=== PATIENT | female | born 1995 | race Caucasian/White ===

== ENCOUNTER 2016-09-22 18:22 | Emergency (ER) | payer OTHER ==
[2016-09-22 18:39] VITALS: BP 132/84
--- NOTE | 2016-09-22 19:08 | EDM.PDOC ---
ED HPI GENERAL MEDICAL PROBLEM - General Chief Complaint: ENT Problem Stated Complaint: RETAINER BROKEN Time Seen by Provider: 09/22/16 19:10 Source of Information: Reports: Patient - History of Present Illness INITIAL COMMENTS - FREE TEXT/NARRATIVE: pt has a loose lower retainer and she cut the wirre that spit into 3 pieces and is hurting her tongue. She has been using gum to cover it. She is wanting me to remove the remainder of it. Onset: Other (yesterday) Duration: Hour(s): Associated Symptoms: Reports: No Other Symptoms Oral/Mouth Pain Score (Numeric/FACES): 6 - Related Data Allergies Allergy/AdvReac Type Severity Reaction Status Date / Time codeine Allergy Hives Verified 09/22/16 18:41 fentanyl Allergy Hives Verified 09/22/16 18:41 hydrocodone Allergy Anaphylactic Verified 09/22/16 18:41 Shock morphine Allergy Hives Verified 09/22/16 18:41 oxycodone Allergy Hives Verified 09/22/16 18:41 Past Medical History Gastrointestinal History: Reports: Irritable Bowel Syndrome Psychiatric History: Reports: Anxiety - Past Surgical History Musculoskeletal Surgical History: Reports: Other (See Below) Other Musculoskeletal Surgeries/Procedures:: knee reconstruction surgeries Social & Family History - Tobacco Use Smoking Status *Q: Never Smoker - Caffeine Use Caffeine Use: Reports: Soda - Recreational Drug Use Recreational Drug Use: No ED ROS ENT - Review of Systems Review Of Systems: See Below Constitutional: Reports: No Symptoms HEENT: Reports: Other (pt has a wire from a retainer that is poking into her tongue. She is wanting me to remov the entire retainer. ) Respiratory: Reports: No Symptoms Cardiovascular: Reports: No Symptoms Endocrine: Reports: No Symptoms GI/Abdominal: Reports: No Symptoms : Reports: No Symptoms ED EXAM, ENT - Physical Exam Exam: See Below Text/Narrative:: Pt has a retainer with a loose wire that is poking into her tongue. She wants to have the entire retainer removed. I did advise her that I did not have the equipment to remove it. Sh was given dntal wax, Exam Limited By: Uncooperative Ears: Normal TMs Nose: Normal Inspection Mouth/Throat: Other ( wire is poking into her tongue and she is uncomfortable. ) Course - Vital Signs Last Recorded V/S: Last Vital Signs Temp 36.9 C 09/22/16 18:38 Pulse 98 09/22/16 18:38 Resp 18 09/22/16 18:38 BP 132/84 09/22/16 18:38 Pulse Ox 98 09/22/16 18:38 Departure - Departure Time of Disposition: 19:05 Disposition: Home, Self-Care 01 Condition: Fair Clinical Impression: Dental abrasion, localized - Discharge Information Referrals: PCP,None [Primary Care Provider] - Forms: ED Department Discharge Care Plan Goals: to dental clinic Saturday for removal of retainer, use dental wax to cover the area.
== END 2016-09-22 19:19 | disposition home or self-care (01) ==
LOC: JP.ED 18:22
DX: K03.1 Abrasion of teeth (principal); Z88.5 Allergy status to narcotic agent; Z88.8 Allergy status to other drugs, medicaments and biological substances; W45.8XXA Other foreign body or object entering through skin, initial encounter
CPT/HCPCS: 99283